=== PATIENT | male | born 1985 | race Caucasian/White ===

== ENCOUNTER 2019-05-02 13:10 | Emergency (ER) | payer SELFPAY ==
[~2019-05-02] VITALS: Ht 188 cm; Wt 117.9 kg
[2019-05-02] MEDS ORDERED: LIDOCAINE 2%/ EPINEPHRINE 20ML MDV INJ ONE (13:30)
[2019-05-02] MEDS ORDERED: KETOROLAC TROMETHAMINE 10 MG TAB PO ONE (14:00)
[2019-05-02] MEDS ORDERED: DOXYCYCLINE HYCLATE TABLET 100 MG TAB PO ONE (14:00)
== END 2019-05-02 14:00 | disposition home or self-care (01) ==
LOC: ER 13:10
DX: L02.412 Cutaneous abscess of left axilla (principal); L03.114 Cellulitis of left upper limb
CPT/HCPCS: 99283